=== PATIENT | female | born 1995 | race Caucasian/White ===

== ENCOUNTER 2020-01-17 09:52 | Outpatient (CLI) | payer MEDICAID, SELFPAY ==
--- NOTE | ~2020-01-17 | XR_ITS ---
XR wrist LT min 3V DATE: 01/17/2020 10:24 INDICATION: Left wrist and hand pain TECHNIQUE: 4 views COMPARISON: None FINDINGS: No fracture or dislocation, periosteal reaction or bone destruction, radiopaque intra-artic ular loose body or chondrocalcinosis. Joint spaces are preserved. IMPRESSION: Negative Reviewed, dictated and finalized at location B. OPSYCHOLOGY SERVICE DIRECTOR IMPRESSION: Negative
--- NOTE | ~2020-01-17 | XR_ITS ---
XR hand LT min 3V DATE: 01/17/2020 10:24 INDICATION: Left wrist and hand pain TECHNIQUE: AP, lateral, oblique views COMPARISON: None FINDINGS: No fracture or dislocation, periosteal reaction or bone destruction, chondrocalcinosis or e rosive change. Joint spaces are well preserved. IMPRESSION: Negative Reviewed, dictated and finalized at location B. R DETAILER IMPRESSION: Negative
[2020-01-17 10:48] LABS: Basophils Percent Auto 0.6 % (0.2-1.2); Eosinophils Absolute Auto 0.1 K/mm3 (0-0.3); Eosinophils Percent Auto 1.5 % (0-4.4); Hematocrit 42.5 % (37.0-47.0); Hemoglobin 13.9 g/dL (12.0-15.0); Immature Granulocyte Absolute 0.01 K/mm3 (0.00-0.031); Immature Granulocyte Percent A 0.2 % (0-0.5); Immature Reticulocyte Fraction 4.7 % (3.0-15.9); Lymphocytes Absolute Auto 1.61 K/mm3 (0.9-3.2); Lymphocytes Percent Auto 26.1 % (18.3-44.2); Mean Corpuscular HGB Conc 32.7 g/dl (32-36); Mean Corpuscular Hemoglobin 29.3 pg (26-34); Mean Corpuscular Volume 89.7 fl (80-100); Mean Platelet Volume 10.9 fl (7.4-10.4); Monocytes Absolute Auto 0.5 K/mm3 (0.1-0.6); Monocytes Percent Auto 7.8 % (2.6-8.5); Neutrophils Absolute Auto 3.9 K/mm3 (1.3-6.7); Neutrophils Percent Auto 63.8 % (45.5-73.1); Platelet Count Result 247 k/mm3 (150-375); Red Blood Count 4.74 M/mm3 (4.2-5.4); Red Cell Distribution Width 12.4 % (11.5-14.5); Reticulocyte Hemoglobin Conten 32.8 pg (28.2-35.7); Reticulocyte Percent 1.31 % (0.7-4.3); Reticulocytes Absolute 0.06 B/L (32.2-175.7); White Blood Count 6.2 K/mm3 (4.5-10.0)
[2020-01-17 11:04] LABS: Alanine Aminotransferase 22 U/L (4-35); Albumin Level 4.5 g/dL (3.5-5.1); Alkaline Phosphatase 85 U/L (38-126); Aspartate Amino Transferase 29 U/L (14-36); Bilirubin,Total 0.5 mg/dL (0.2-1.3); Blood Urea Nitrogen 11 mg/dL (7-17); Calcium 9.4 mg/dL (8.4-10.2); Carbon Dioxide 26 mmol/L (22-30); Chloride 101 mmol/L (98-107); Cholesterol 143 mg/dL (0-200); Estimated Glomerular Filt Rate > 60; Glucose 89 mg/dL (65-105); HDL Direct 69 mg/dL; Lactate Dehydrogenase 300 U/L (313-618); Sodium 140 mmol/L (137-145); Triglycerides 64 mg/dL (<150)
[2020-01-17 11:15] LABS: LDL Cholesterol Direct 61 mg/dL; Transferrin 259 mg/dL (206-381)
[2020-01-17 11:36] LABS: Thyroid Stimulating Hormone 0.747 uIU/mL (0.465-4.680); Total Triiodothyronine (T3) 1.17 NG/ML (0.97-1.69)
[2020-01-17 11:53] LABS: Free T4 Free Thyroxine 1.05 ng/mL (0.78-2.19); Vitamin D 25 Hydroxy 37.9 ng/mL
[2020-01-17 12:02] LABS: Iron 77 ug/dL (37-170)
[2020-01-17 12:10] LABS: Folic Acid 8.7 ng/mL (2.76->20)
[2020-01-17 12:34] LABS: Percent Iron Saturation 22 % (20-50)
== END 2020-01-17 09:53 | disposition home or self-care (01) ==
PROVIDERS: PCP Emergency Medicine; Visit Provider Nurse Practitioner Family
DX: M25.532 Pain in left wrist (principal)
CPT/HCPCS: 36415; 73110; 73130; 80053; 80061; 82306; 82607; 82728; 82746; 83540; 83550; 83615; 84439; 84443; 84466; 84480; 85025; 85046